=== PATIENT | male | born 1945 | race Caucasian/White ===

== ENCOUNTER → 2016-12-20 | Outpatient (CLI) | payer MEDICARE, OTHER ==
[2016-06-10 11:26] VITALS: BP 158/82
[~2016-12-20] MED LIST: ALFU10TA3 PO; ASCO100T4 PO; ASPI-482 PO; ASPI81TA2 PO; CELE200C PO; CHOL20002 PO; FERR325T58 PO; HYDR-1172 PO; Hydrocodone/Acetaminophen PO; IBUP-1027 PO; LOSA100T6 PO; MELA5TAB PO; MELO-150 PO; MULT-18 PO; OMEG1CAP30 PO; OMEG1CAP6 PO; PSEU30TA PO; SIMV10TA3 PO; UBID200C4 PO
[2016-12-20 09:24] LABS: ALBUMIN 3.6 g/dL (3.4-5.0); CREATININE 1.1 mg/dL (0.7-1.3); GFR 66.4; POTASSIUM 4.1 mmol/L (3.5-5.1)
[2016-12-20 09:30] LABS: BASO % 1 % (0-3); EOS % 6 % (0-3); HEMATOCRIT 41.4 % (39.0-53.0); LYMPH # 2.6 x10^3/uL (1.0-4.8); LYMPH % 38 % (24-48); MEAN CORPUSCULAR HEMOGLOBIN 31 pg (25-35); MEAN CORPUSCULAR HGB CONC 34 g/dL (31-37); MEAN CORPUSCULAR VOLUME 93 fL (79-100); MONO % 11 % (0-9); NEUT % 46 % (31-73); PLATELET COUNT 206 x10^3/uL (140-400); RED BLOOD COUNT 4.45 x10^6/uL (4.30-5.70); RED CELL DISTRIBUTION WIDTH 12.9 % (11.5-14.5); WHITE BLOOD COUNT 6.8 x10^3/uL (4.0-11.0)
[2016-12-20 09:37] LABS: INR 1.1 (0.8-1.1); PROTHROMBIN TIME PATIENT 13.2 SEC (11.7-14.0)
[2016-12-20 10:00] LABS: BILIRUBIN,URINE NEGATIVE (NEG); GLUCOSE,URINE NEGATIVE (NEG); NITRITE,URINE NEGATIVE (NEG); PH,URINE 6.5; PROTEIN,URINE NEGATIVE (NEG-TRACE); UROBILINOGEN,URINE 0.2 mg/dL (0.2 mg/dL)
[2016-12-20 10:13] LABS: BACTERIA,URINE 0 /HPF (0-FEW); RBC,URINE OCC /HPF (0-2); SQUAMOUS EPITHELIAL CELL,UR FEW /LPF; WBC,URINE 0 /HPF (0-4)
--- NOTE | 2016-12-20 12:46 | RAD ---
Indication: Presurgical evaluation. Hypertension. Technique: Two-view chest radiograph was obtained. No comparison is available. Findings: The lungs are clear. The cardiopulmonary silhouette is within normal limits. There is no pleural effusion. There are degenerative changes in the spine. Right shoulder replacement is noted. Impression: No acute thoracic findings.
--- NOTE | 2016-12-20 13:41 | EKG ---
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
== END | disposition home or self-care (01) ==
LOC: SURGPAT 14:34
PROVIDERS: ATTEND Orthopaedic Surgery
DX: Z01.818 Encounter for other preprocedural examination (principal); I10 Essential (primary) hypertension
CPT/HCPCS: 36415; 71020; 80048; 81001; 82040; 85027; 85610; 85651; 85730; 87641; 93005

== ENCOUNTER 2017-01-04 05:59 | Inpatient (IN) | payer MEDICARE, OTHER ==
--- NOTE | 2017-01-03 10:13 | PDOC1 ---
History and Physical Date of Admission Date of Admission DATE: 01/04/17 Identification/Chief Complaint Chief Complaint right knee osteoarthritis pain Source Source: Chart review History of Present Illness History of Present Illness Tenzin villa is a 71 year old male patient with a long history of right knee osteoarthritis pain. He had a series of Orthovisc injections finishing on . He states that it really only helped for a week or two and his knee continues to be painful daily that limits his daily activities. Past Medical History Cardiovascular: HTN, Hyperlipidemia Musculoskeletal: Osteoarthritis Past Surgical History Past Surgical History: Tonsillectomy, Other (shoulder replacement) Current Medications Current Medications Active Scripts Active Reported Fish Oil 1,000 Mg Capsule ([place]-3 Fatty Acids/Fish Oil) 1 Each Capsule 1 Each PO BID Aspirin 81 Mg Tab.chew 162 Mg PO Ibuprofen 400 Mg Tablet 400 Mg PO PRN Q6HRS PRN Melatonin 5 Mg Tablet 5 Mg PO Not given this hospitalization. May resume at home as ordered by doctor. Co Q-10 (Ubidecarenone) 200 Mg Capsule 200 Mg PO 1X Not given this hospitalization. May resume at home as ordered by doctor. Iron Supplement (Ferrous Sulfate) 325 Mg Tablet 325 Mg PO DAILY last dose 06/25/14 at 9 am next dose due 06/25/14 at 5 pm Vitamin C (Ascorbic Acid) 100 Mg Tablet 1,000 Mg PO Not given this hsopitalization. May resume at home as ordered by doctor. Vitamin D-3 (Cholecalciferol (Vitamin D3)) 2,000 Unit Tablet 2,000 Unit PO Not given this hospitalization. May resume at home as ordered by doctor. Daily Vitamin (Multivitamin) 1 Each Tablet 1 Each PO last dose 06/25/14 at 9 am next dose 06/26/14 at 9 am Pseudoephedrine Hcl 30 Mg Tablet 30 Mg PO Not given this hospitalization. May resume at home as ordered by doctor. Simvastatin 10 Mg Tablet 10 Mg PO last dose 06/24/14 at 9 pm next dose due 06/25/14 at 9 pm Losartan Potassium 100 Mg Tablet 100 Mg PO last dose 06/25/14 at 9 am next dose due 06/26/14 at 9 am Meloxicam 15 Mg Tablet 15 Mg PO NOt given this hospitalization. May resume at home as ordered by doctor. Do NOT take celebrex if taking this medication. Alfuzosin Hcl 10 Mg Tab.er.24h 10 Mg PO HS last dose 06/24/14 at 9 pm next dose due 06/25/14 at 9 pm Allergies Allergies: Coded Allergies: No Known Drug Allergies (Unverified , 06/10/16) Physical Exam General: Alert, Oriented X3, Cooperative, No acute distress HEENT: Atraumatic, EOMI Lungs: Normal air movement Heart: RRR Abdomen: Soft Extremities: No clubbing, No cyanosis, Normal pulses, Other (The right knee shows his mildly antalgic gait. There is varus alignment. No masses. No detectable effusion. Tenderness on the joint lines. Range of motion is 5-115 degrees. There is crepitus with range of motion, and pain at the extremes of motion. The knee is stable to varus and valgus stress without subluxation or laxity. Muscle strength is normal (5/5) for quadriceps and hamstrings, and muscle tone is normal. The skin is normal with no scars, rashes, lesions or ulcers. Light touch sensation is intact. No edema and no varicosities. 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 Findings Bones: The angle between the right hip-ankle mechanical axis and the femoral shaft is 5. The angle between the left hip- ankle mechanical axis and the femoral shaft is 5. The mechanical axis crosses medial to the center of the right knee indicating varus alignment. The mechanical axis crosses in the center to slightly medial of the left knee indicating proper to varus mechanical alignment. Joints: There is narrowing of the right knee joint medially. The left knee joint shows mild medial narrowing. The hips and ankles show minimal degenerative changes. Soft tissue: Normal. Impression: Varus alignment of the right knee. The difference between the mechanical axis and femoral shaft anatomic axis is 5 bilaterally. Dictated and Signed Using Voice Recognition Software NOEMI Roland VTE Prophylaxis Ordered VTE Prophylaxis Devices: Yes VTE Pharmacological Prophylaxi: Yes Assessment/Plan Assessment/Plan Right knee osteoarthritis. He has tried nonoperative treatment, including viscosupplementation. We discussed the risks and benefits of proceeding with total knee arthroplasty. He is 72 years old and would benefit regarding pain relief. Dr. Jay and the patient discussed the potential risks of infection, malalignment, blood clots, bleeding, scarring, stiffness, or other potential surgical or anesthetic complications. All of his questions about surgery were answered and he desires to proceed a mutually convenient date. LALITO LAM Jan 03, 2017 10:13
[~2017-01-04] VITALS: Ht 181.6 cm; Wt 123.4 kg
[2017-01-04] VITALS (10 sets, daily range): BP systolic 127–148; BP diastolic 73–88
[2017-01-04] MEDS ORDERED: MELOXICAM 7.5 MG TABLET PO PRN (06:00)
[2017-01-04] MEDS ORDERED: HYDROCODONE/APAP 7.5/325MG TABLET. PO PRN (06:00)
[2017-01-04] MEDS ORDERED: MORPHINE SULFATE 5 MG, KETOROLAC TROMETHAMINE 30 MG, ROPIVacaine 0.5% PF 60 ML, EPINEPH... INT ART ONE ×5 (06:00)
[2017-01-04] MEDS ORDERED: TRANEXAMIC ACID 1,000 MG in IV NS 50ML -- 1ST BAG INJ ONE (06:00)
[2017-01-04] MEDS ORDERED: CEFAZOLIN 2GM PREMIX 50 ML IV PRN (06:00)
[2017-01-04] MEDS ORDERED: methylPREDNISolone ACETATE 80 MG/ML VIAL. ONE (06:26)
[2017-01-04] MEDS ORDERED: BUPIVACAINE MPF 0.25% 30 ML VIAL. ONE (06:26)
[2017-01-04] MEDS ORDERED: VANCOMYCIN 1 GM VIAL. ONE (06:27)
[2017-01-04] MEDS ORDERED: methylPREDNISolone ACETATE 40 MG/ML VIAL. ONE (06:27)
[2017-01-04] MEDS ORDERED: TOBRAMYCIN POWDER 1.2 GM VIAL. ONE (06:27)
[2017-01-04] MEDS ORDERED: ONDANSETRON PF 4 MG/2 ML VIAL. ONE (06:48)
[2017-01-04] MEDS ORDERED: FENTANYL PF 100 MCG/2 ML VIAL. ONE ×2 (06:48→07:49)
[2017-01-04] MEDS ORDERED: LIDOCAINE 2% 100 MG/5 ML DISP.SYRIN. ONE (06:48)
[2017-01-04] MEDS ORDERED: PROPOFOL 20 ML IV ONE ×2 (06:48→07:37)
[2017-01-04] MEDS ORDERED: IV RINGERS,LACTATED 1000ML 1,000 ML IV SCH (07:00)
[2017-01-04] MEDS ORDERED: FENTANYL PF 100 MCG/2 ML VIAL. IV PRN ×3 (07:00→10:00)
[2017-01-04] MEDS ORDERED: LIDOCAINE 1% 1 ML SYRINGE. ID PRN (07:00)
[2017-01-04] MEDS ORDERED: PROCHLORPERAZINE 10 MG/2 ML VIAL. IV PRN ×2 (07:00→10:00)
[2017-01-04] MEDS ORDERED: ONDANSETRON PF 4 MG/2 ML VIAL. IV PRN (07:00)
[2017-01-04] MEDS ORDERED: HYDROMORPHONE 2 MG/ML VIAL. IV PRN (07:00)
[2017-01-04] MEDS ORDERED: DEXAMETHASONE SOD PHOS 20 MG/5 ML VIAL. ONE (07:24)
[2017-01-04] MEDS ORDERED: EPHEDRINE PF IN SALINE 50 MG/5 ML DISP.SYRIN. IV ONE ×2 (07:24→07:50)
[2017-01-04] MEDS ORDERED: GLYCOPYRROLATE 1 MG/5 ML VIAL. ONE (07:43)
[2017-01-04] MEDS ORDERED: TRANEXAMIC ACID 1,000 MG in IV NS 50ML -- 2ND BAG INJ ONE (08:00)
[2017-01-04] MEDS ORDERED: SEVOFLURANE > 120 MINUTES. IH ONE (09:19)
[2017-01-04] MEDS ORDERED: PHENYLEPHRINE in 0.9% NACL PF 1 MG/10 ML DISP.SYRIN. IV ONE (09:21)
--- NOTE | 2017-01-04 09:39 | PDOC4 ---
Operative Note Operative Note Date of Procedure: January 04, 2017 Pre-Op Diagnosis: Osteoarthritis right knee, left shoulder pain Post-Op Diagnosis: Osteoarthritis right knee, left shoulder pain Procedure: right total knee arthroplasty, left shoulder corticosteroid injection Surgeon: Gonzalez Jay MD Experimental Psychologist: Bell Mercado PA-C Anesthesia: General EBL: 100 mL Specimens Obtained: right knee bone and soft tissue Complications: none Implant Company: [employer] Drains: Hemovac plus pain catheter Tourniquet time: 68 minutes Indications for Procedure: Arthritis pain unrelieved by nonoperative management. Findings: Severe osteoarthritis with bone on bone contact medially. Extensive medial release needed as well as medial tibial osteophyte and bone resection. Constrained polyethylene used as a result of extensive release Implants used: Size 6 right bicruciate stabilized Journey II BCS cobalt chrome femoral component, size 6 right Journey nonporous tibial baseplate, size 5-6 15 mm right Journey II BCS XLPE constainded articular insert, 35 mm oval Shonna II resurfacing patellar component Procedure in Detail: The patient was identified in the preoperative holding area, and the correct right extremity was marked by me. The patient was taken to the operating room where the patient was anesthetized by the Department of Anesthesia. Preoperative antibiotics were given intravenously. Tranexamic acid 1 g was given intravenously for intraoperative hemostasis. A "time-out" procedure was performed. The left shoulder was injected with 40 mg of Depo-Medrol and 2 mL 0.5 % Marcaine. The patient was positioned supine on the operative table with a tourniquet on the upper thigh. The limb was thoroughly prepped and draped in sterile fashion. An impervious stockinet and adhesive drape were used such that the skin was entirely covered. An Cervantes leg cordova was used. The operating team wore personal exhaust-ventilated hoods. The tourniquet was inflated to 350 mm Hg. A midline skin incision was made with a scalpel using the patella and tibial tubercle as landmarks. Electrocautery was used for hemostasis. My engineering assistant used rake retractors. A medial parapatellar arthrotomy incision was used with extension into the distal quadriceps tendon. The patella was retracted laterally and Hohmann retractors were now used by my engineering assistant. Excess synovium, the menisci, and the cruciate ligaments were resected sharply. The patella was assessed and excess synovium and osteophytes around the patellar articulation were removed. The patella was measured with a caliper, cut freehand with a saw using caliper measurements, sized, and then drilled for an oval three-pegged patella component. Periarticular injection was used in the suprapatellar pouch and distal quadriceps muscle. Whitesides's line was assessed on the femur. An intra-medullary 5 degree cutting guide was pinned to the femur, and a distal femoral cut was made with an oscillating saw. An additional 2 mm resection was used due to the deep femoral sulcus, and deficient condyle.My engineering assistant held Hohmann retractors and an [facility] retractor to protect the medial and lateral collateral ligaments, the patellar tendon, the skin and the other soft tissues. An anterior referencing guide was applied with external rotation of 4 to match Whitesides line. A 5-in-1 Journey II cutting guide was then applied and pinned to the femur. The posterior, anterior, and all chamfer cuts were made with the oscillating saw. An extramedullary guide was pinned to the tibia and rotational alignment and the planned resection thickness assessed. An external alignment steph was used to verify the planned cut in the varus-valgus plane and regarding posterior slope referencing the tibial tubercle, the tibial shaft, the ankle joint, and the second metatarsal. The upper tibia was cut made with an oscillating saw. My engineering assistant held Hohmann retractors and a posterior cruciate ligament retractor to protect the medial and lateral collateral ligaments, the patellar tendon, the skin, the peroneal nerve and the other soft tissues. The upper tibia was sized with a trial baseplate. The posterior compartment was cleared of osteophytes and loose bodies, and posterior capsule released. Alecia-articular injection was used in the posterior compartment. The box cut for a posterior stabilized component was made. A preliminary reduction was performed with a trial femur, trial tibial baseplate and trial polyethylene. Soft-tissue balancing was now performed, and extension and rotation of the alignments was checked using a guide steph in the tibial trial and a guide pin in the femur. A medial release was required, using a 10 blade scalpel, and a Christopher elevator to elevate the medial structures from the upper medial tibia. Downsizing of the tibia was required using osteotome resecting medial osteophyte and bone. The stability was assessed using different thicknesses of tibial articular surface to find satisfactory stability and good range of motion. During range of motion testing, the medial collateral ligament and hamstring suddenly loosened. The rotation of the tibial component was marked on the upper tibia. Final trial reduction was now performed verifying patella tracking and tibiofemoral stability and alignment, and a constrained insert trial was used. The tibia preparation was completed with a drill, saw, and fin punch at the previously noted rotation. The final implants were verified and opened. Outer gloves were changed by the operating team. The bone cuts were washed thoroughly with the [employer] InterPulse device and dried. Two packages of Palacos bone cement were mixed in powdered form with 1 gm of Vancomycin and 1.2 g tobramycin, then vacuum-mixed with the monomer, and placed into a cement gun. The cut surfaces of the bone were thoroughly dried with Guzman-tip suction and with laparotomy sponges for cement interdigitation. The final components were cemented into place. The knee was kept at full extension while the cement hardened, and excess cement was removed. Tranexamic acid 1 g was redosed intravenously for additional intraoperative hemostasis. A final periarticular injection was used for pain relief. The tourniquet was released, and electrocautery was used for hemostasis. A final check of [id number] and stability was made, and the polyethylene implant final size was chosen. The polyethylene implant was secured to the tibial baseplate, and the knee was reduced a final time. Thorough irrigation was used. Hemovac and pain catheter were used.The arthrotomy was closed with interrupted [id number] #1 PDS suture. The capsulotomy was then run with #1 PDS. The subcutaneous tissues were closed with #2-0 Vicryl by my engineering assistant. The skin was reapproximated with michael by my engineering assistant. A bulky sterile dressing was applied. Needle and sponge counts were correct. GONZALEZ JAY MD Jan 04, 2017 09:39
[2017-01-04] MEDS: IV DEXTROSE 5 %-0.45 % NACL 1,000 ML IV SCH ×2 (09:47→12:14)
[2017-01-04] MEDS ORDERED: CALCIUM CARBONATE 500 MG TAB.CHEW PO PRN (10:00)
[2017-01-04] MEDS ORDERED: MORPHINE SULFATE 2 MG/ML DISP.SYRIN. IV PRN (10:00)
[2017-01-04] MEDS ORDERED: ACETAMINOPHEN 325 MG TABLET. PO PRN (10:00)
[2017-01-04] MEDS ORDERED: OXYCODONE/APAP 7.5/325 TABLET. PO PRN (10:00)
[2017-01-04] MEDS ORDERED: MORPHINE SULFATE 10 MG/ML VIAL. IV PRN (10:00)
[2017-01-04] MEDS ORDERED: DIPHENHYDRAMINE 50 MG/ML VIAL IV PRN (10:00)
[2017-01-04] MEDS ORDERED: DEXTROSE 50% 25 GM / 50ML DISP.SYRIN. IV PRN (10:00)
[2017-01-04] MEDS ORDERED: ZOLPIDEM 5 MG TABLET. PO PRN (10:00)
[2017-01-04] MEDS ORDERED: OXYCODONE/APAP 5/325 TABLET. PO PRN (10:00)
[2017-01-04] MEDS ORDERED: PROCHLORPERAZINE 5 MG TABLET. PO PRN (10:00)
[2017-01-04] MEDS ORDERED: 0.9 % SODIUM CHLORIDE 10 ML DISP.SYRIN. IV PRN (10:00)
[2017-01-04] MEDS ORDERED: MORPHINE SULFATE 4 MG/ML DISP.SYRIN. IV PRN ×2 (10:00)
[2017-01-04] MEDS ORDERED: HYDROCODONE/APAP 10/325 TABLET. PO PRN (10:00)
[2017-01-04] MEDS ORDERED: METOCLOPRAMIDE HCL 10 MG/2 ML VIAL. IV PRN (10:00)
[2017-01-04] MEDS ORDERED: TRAMADOL 50 MG TABLET. PO PRN ×2 (10:00)
[2017-01-04] MEDS: FENTANYL PF 100 MCG/2 ML VIAL. IV PRN ×2 (10:08→10:17)
[2017-01-04] MEDS: MORPHINE SULFATE 2 MG/ML DISP.SYRIN. IV PRN ×2 (10:31→10:43)
--- NOTE | 2017-01-04 10:48 | RAD ---
EXAM: Right knee, 2 views. HISTORY: Arthroplasty. COMPARISON: None. FINDINGS: Frontal and lateral views of the right knee are obtained. There is a right knee arthroplasty in expected position. There is surrounding soft tissue gas, a surgical drain, joint fluid and skin michael due to recent surgery. IMPRESSION: Right knee arthroplasty in expected position.
[2017-01-04] MEDS: MULTIVITAMIN with MINERAL TABLET. PO SCH (11:30)
[2017-01-04] MEDS: CEFAZOLIN SODIUM 3 GM in IV NORMAL SALINE 100ML 100 ML IV SCH ×2 (14:12→17:24)
[2017-01-04] MEDS: SENNOSIDES/DOCUSATE 8.6/50MG TABLET. PO SCH (17:17)
[2017-01-04] MEDS: FERROUS SULFATE 325 MG TABLET PO SCH (17:17)
[2017-01-04] MEDS: KETOROLAC TROMETHAMINE 30 MG, BUPIVACAINE MPF 0.25% 20 ML, EPINEPHRINE 0.5 MG in TOTAL ... INT ART SCH (17:20)
[2017-01-04] MEDS: HYDROCODONE/APAP 7.5/325MG TABLET. PO PRN (20:50)
[2017-01-04] MEDS: ASPIRIN ENTERIC COATED 325 MG TABLET.DR. PO SCH (20:51)
[2017-01-04] MEDS: CELECOXIB 200 MG CAPSULE PO SCH (20:51)
[2017-01-04] MEDS: TAMSULOSIN 0.4 MG CAP.ER.24H. PO SCH (20:51)
[2017-01-05] MEDS: CEFAZOLIN SODIUM 3 GM in IV NORMAL SALINE 100ML 100 ML IV SCH (01:00)
[2017-01-05 02:53] VITALS: BP 127/87
[2017-01-05] MEDS: IV DEXTROSE 5 %-0.45 % NACL 1,000 ML IV SCH ×2 (05:47→15:47)
[2017-01-05] MEDS ORDERED: MAGNESIUM HYDROXIDE 2,400 MG/30 ML ORAL.SUSP. PO PRN (06:00)
[2017-01-05 06:11] VITALS: BP 128/74
[2017-01-05] MEDS: KETOROLAC TROMETHAMINE 30 MG, BUPIVACAINE MPF 0.25% 20 ML, EPINEPHRINE 0.5 MG in TOTAL ... INT ART SCH (06:11)
[2017-01-05 06:53] LABS: HEMATOCRIT 32.9 % (39.0-53.0); HEMOGLOBIN 10.9 g/dL (13.0-17.5); RED BLOOD COUNT 3.43 x10^6/uL (4.30-5.70); RED CELL DISTRIBUTION WIDTH 13.3 % (11.5-14.5); WHITE BLOOD COUNT 11.2 x10^3/uL (4.0-11.0)
[2017-01-05] MEDS: SENNOSIDES/DOCUSATE 8.6/50MG TABLET. PO PRN ×2 (08:42→20:47)
[2017-01-05] MEDS: CHOLECALCIFEROL (VITAMIN D3) 1,000 UNIT TABLET PO SCH (08:43)
[2017-01-05] MEDS: FERROUS SULFATE 325 MG TABLET PO SCH ×2 (08:43→16:56)
[2017-01-05] MEDS: CELECOXIB 200 MG CAPSULE PO SCH (08:43)
[2017-01-05] MEDS: MULTIVITAMIN with MINERAL TABLET. PO SCH (08:43)
[2017-01-05] MEDS: ASPIRIN ENTERIC COATED 325 MG TABLET.DR. PO SCH ×2 (08:43→20:47)
[2017-01-05] MEDS: HYDROCODONE/APAP 7.5/325MG TABLET. PO PRN ×4 (08:44→20:47)
[2017-01-05] MEDS: LOSARTAN POTASSIUM 50 MG TABLET. PO SCH (08:45)
[2017-01-05] MEDS: SIMVASTATIN 10 MG TABLET PO SCH ×2 (09:00→16:56)
[2017-01-05 11:15] VITALS: BP 132/73
--- NOTE | 2017-01-05 12:38 | PDOC ---
PROGRESS NOTES Subjective Subjective No complaints. Doing very well. He says his left shoulder is feeling much better after the intraoperative cortisone injection. Objective Vital Signs Vital Signs Date Time Temp Pulse Resp B/P Pulse Ox O2 Delivery O2 Flow Rate FiO2 01/05/17 12:19 16 01/05/17 11:15 98.1 70 132/73 98 Room Air 98.1 01/04/17 14:00 2.0 Physical Exam Dressing dry and intact. Pain catheter and Hemovac in place. Good dorsiflexion and plantarflexion of the foot with no evidence of neurovascular injury or DVT. Calves are soft and nontender with a negative Homans. Peripheral pulses and light touch sensation intact. Labs Laboratory Tests Test 01/05/17 06:40 White Blood Count 11.2x10^3/uL (4.0-11.0) Red Blood Count 3.43x10^6/uL (4.30-5.70) Hemoglobin 10.9g/dL (13.0-17.5) Hematocrit 32.9% (39.0-53.0) Mean Corpuscular Volume 96fL (79-100) Mean Corpuscular Hemoglobin 32pg (25-35) Mean Corpuscular Hemoglobin Concent 33g/dL (31-37) Red Cell Distribution Width 13.3% (11.5-14.5) Platelet Count 173x10^3/uL (140-400) Laboratory Tests Test 01/05/17 06:40 White Blood Count 11.2x10^3/uL (4.0-11.0) Red Blood Count 3.43x10^6/uL (4.30-5.70) Hemoglobin 10.9g/dL (13.0-17.5) Hematocrit 32.9% (39.0-53.0) Mean Corpuscular Volume 96fL (79-100) Mean Corpuscular Hemoglobin 32pg (25-35) Mean Corpuscular Hemoglobin Concent 33g/dL (31-37) Red Cell Distribution Width 13.3% (11.5-14.5) Platelet Count 173x10^3/uL (140-400) Imaging Postoperative x-rays reviewed by me, showing satisfactory total knee replacement , with no apparent complications. Assessment Assessment POD #1 right TKA and left shoulder cortisone injection Problems: Plan Plan of Care Continue POC including DVT prophylaxis and physical therapy. He would like to go home tomorrow after therapy, which is fine as long as he is doing well. LALITO LAM Jan 05, 2017 12:38
[2017-01-05] MEDS ORDERED: BISACODYL 10 MG SUPP.RECT. PR PRN (16:00)
[2017-01-05 18:20] VITALS: BP 154/81
[2017-01-05] MEDS: TAMSULOSIN 0.4 MG CAP.ER.24H. PO SCH (20:47)
[2017-01-06] MEDS: IV DEXTROSE 5 %-0.45 % NACL 1,000 ML IV SCH (01:47)
[2017-01-06 05:11] LABS: HEMATOCRIT 31.2 % (39.0-53.0); HEMOGLOBIN 10.5 g/dL (13.0-17.5)
[2017-01-06] MEDS ORDERED: ACETAMINOPHEN 325 MG TABLET. PO PRN (05:32)
[2017-01-06] MEDS ORDERED: FENTANYL PF 100 MCG/2 ML VIAL. IV PRN ×2 (05:32)
[2017-01-06] MEDS: HYDROCODONE/APAP 7.5/325MG TABLET. PO PRN ×3 (06:19→12:38)
[2017-01-06 06:22] VITALS: BP 145/76
[2017-01-06] MEDS: FERROUS SULFATE 325 MG TABLET PO SCH (08:22)
[2017-01-06] MEDS: CHOLECALCIFEROL (VITAMIN D3) 1,000 UNIT TABLET PO SCH (08:23)
[2017-01-06] MEDS: SENNOSIDES/DOCUSATE 8.6/50MG TABLET. PO SCH (08:23)
[2017-01-06] MEDS: ASPIRIN ENTERIC COATED 325 MG TABLET.DR. PO SCH (08:23)
[2017-01-06] MEDS: MULTIVITAMIN with MINERAL TABLET. PO SCH (08:23)
[2017-01-06] MEDS: LOSARTAN POTASSIUM 50 MG TABLET. PO SCH (08:32)
[2017-01-06] MEDS ORDERED: MELOXICAM 7.5 MG TABLET PO SCH (09:00)
--- NOTE | 2017-01-06 12:09 | PDOC ---
PROGRESS NOTES Subjective Subjective Doing well. Objective Vital Signs Vital Signs Date Time Temp Pulse Resp B/P Pulse Ox O2 Delivery O2 Flow Rate FiO2 01/06/17 09:07 Room Air 01/06/17 08:32 89 158/58 01/06/17 06:22 97.6 20 94 97.6 01/05/17 19:44 2.0 Physical Exam Expected swelling. Pain catheter and drain have been removed. Dressing with spotty drainage only. Calf soft and nontender. Negative homans sign. Good AROM ankle. Peripheral pulses and light touch sensation intact. Labs Laboratory Tests Test 01/05/17 06:40 01/06/17 04:45 White Blood Count 11.2x10^3/uL (4.0-11.0) Red Blood Count 3.43x10^6/uL (4.30-5.70) Hemoglobin 10.9g/dL (13.0-17.5) 10.5g/dL (13.0-17.5) Hematocrit 32.9% (39.0-53.0) 31.2% (39.0-53.0) Mean Corpuscular Volume 96fL (79-100) Mean Corpuscular Hemoglobin 32pg (25-35) Mean Corpuscular Hemoglobin Concent 33g/dL (31-37) 34g/dL (31-37) Red Cell Distribution Width 13.3% (11.5-14.5) Platelet Count 173x10^3/uL (140-400) Laboratory Tests Test 01/06/17 04:45 Hemoglobin 10.5g/dL (13.0-17.5) Hematocrit 31.2% (39.0-53.0) Mean Corpuscular Hemoglobin Concent 34g/dL (31-37) Imaging X-rays independently reviewed by me and show satisfactory TKA alignment and no apparent complications. Assessment Assessment POD 2 TKA Problems: Plan Plan of Care Continue DVT prophylaxis and physical therapy. Planned discharge today to home , with outpatient PT. Office F/U in 10-14 days. GONZALEZ CHAUHAN MD Jan 06, 2017 12:09
--- NOTE | 2017-01-06 12:12 | PDOC3 ---
Discharge Summary Visit Information Date of Admission: Jan 04, 2017 Date of Discharge: Jan 06, 2017 Admitting Diagnosis: right knee osteoarthritis pain Final Diagnosis Problems Medical Problems: (1) Osteoarthritis of right knee Status: Acute Brief Hospital Course Allergies Allergies Coded Allergies Type Severity Reaction Last Updated Verified No Known Drug Allergies 01/04/17 No Vital Signs Vital Signs Date Time Temp Pulse Resp B/P Pulse Ox O2 Delivery O2 Flow Rate FiO2 01/06/17 09:07 Room Air 01/06/17 08:32 89 158/58 01/06/17 06:22 97.6 20 94 97.6 01/05/17 19:44 2.0 Lab Results Laboratory Tests Test 01/05/17 06:40 01/06/17 04:45 White Blood Count 11.2x10^3/uL (4.0-11.0) Red Blood Count 3.43x10^6/uL (4.30-5.70) Hemoglobin 10.9g/dL (13.0-17.5) 10.5g/dL (13.0-17.5) Hematocrit 32.9% (39.0-53.0) 31.2% (39.0-53.0) Mean Corpuscular Volume 96fL (79-100) Mean Corpuscular Hemoglobin 32pg (25-35) Mean Corpuscular Hemoglobin Concent 33g/dL (31-37) 34g/dL (31-37) Red Cell Distribution Width 13.3% (11.5-14.5) Platelet Count 173x10^3/uL (140-400) Laboratory Tests Test 01/06/17 04:45 Hemoglobin 10.5g/dL (13.0-17.5) Hematocrit 31.2% (39.0-53.0) Mean Corpuscular Hemoglobin Concent 34g/dL (31-37) Brief Hospital Course 71 year old male who presented with right knee osteoarthritis, for elective total knee arthroplasty. The patient underwent total knee arthroplasty under general anesthesia the day of admission. Perioperative antibiotics and DVT prophylaxis were used. Postoperatively physical therapy and case management were consulted. The patient progressed and is stable for discharge. Discharge Information Condition at Discharge: Stable Follow Up: Weeks (2) Disposition/Orders: D/C to Home Scheduled Alfuzosin Hcl (Alfuzosin Hcl) 10 MG PO HS (Reported) Ferrous Sulfate (Iron Supplement) 325 MG PO DAILY (Reported) [place]-3 Fatty Acids/Fish Oil (Fish Oil 1,000 Mg Capsule) 1 EACH PO BID (Reported ) Ubidecarenone (Co Q-10) 200 MG PO 1X (Reported) Scheduled PRN Ibuprofen (Ibuprofen) 400 MG PO PRN Q6HRS PRN PRN INFLAMMATION (Reported) Miscellaneous Medications Ascorbic Acid (Vitamin C) 1,000 MG PO (Reported) Aspirin (Aspirin) 162 MG PO (Reported) Cholecalciferol (Vitamin D3) (Vitamin D-3) 2,000 UNIT PO (Reported) Losartan Potassium (Losartan Potassium) 100 MG PO (Reported) Melatonin (Melatonin) 5 MG PO (Reported) Meloxicam (Meloxicam) 15 MG PO (Reported) Multivitamin (Daily Vitamin) 1 EACH PO (Reported) Pseudoephedrine Hcl (Pseudoephedrine Hcl) 30 MG PO (Reported) Simvastatin (Simvastatin) 10 MG PO (Reported) Patient Instructions Patient Instructions Patient Instructions Continue to WBAT with walker. Keep dressing dry and intact. F/U with [facility] in 10-14 days. Call for appointment. [phone] Physical therapy for TKA Continue DVT prophylaxis with aspirin 325mg twice daily. LALITO LAM Jan 06, 2017 12:12
--- NOTE | 2017-01-06 12:54 | PATHOLOGY ---
PATHOLOGY REPORT * * * * * * * * FINAL DIAGNOSIS: Bone, right knee, removal: - Degenerative osteoarthritis. (SKM:nani; d/t: 01/06/2017) REPORT ELECTRONICALLY SIGNED BY: Parker Grissom M.D. DATE/TIME: 01/06/2017 12:52 * * * * * * * * GROSS PATHOLOGY: Received in formalin labeled "Sky Padilla II, right knee tissue," are multiple segments of bone, including tibial plateau, measuring 13.8 x 10.2 x 2.9 cm in aggregate dimensions admixed with soft tissue; meniscus is present. The specimen shows focal eburnation of the articular surfaces. Order Booker sections of bone and soft tissue are submitted in cassette A1, following decalcification. (CAA; 01/05/2017) INITIAL CPT CODE(S): A; 10380, 79311 Professional services performed [place] [facility] [place] [address] Technical services performed by [facility] at [address] [place] [address], [facility] [address] [place] [address]. SPECIMEN(S) RECEIVED: A.Right knee tissue CLINICAL HISTORY: Right knee OA PATIENT: SKY PADILLA II /AGE: 11 1945 (Age: 71) PATIENT #: [id number] ALT CASE #: SPECIMEN COLLECTION DATE: 01/04/2017 SPECIMEN RECEIVED DATE: 01/04/2017 [facility] - [address] [place] [address] - PHONE: [phone] * * * END OF REPORT * * *
[2017-01-06] MEDS ORDERED: FERR-26 PO ×2 (13:50→13:51)
[2017-01-06] MEDS ORDERED: ASPI325T11 PO (13:51)
[2017-01-06] MEDS ORDERED: MAGNESIUM HYDROXIDE 2,400 MG/30 ML ORAL.SUSP. PO ONE (14:15)
[2017-01-06 14:47] VITALS: BP 136/76
== END 2017-01-06 15:15 | disposition home or self-care (01) | DRG 470 ==
LOC: OPSVCIP 05:59 → 4 SOUTHEST 11:05
PROVIDERS: ADMIT Orthopaedic Surgery; ATTEND Orthopaedic Surgery
PROC: 3E0U33Z Introduction of Anti-inflammatory into Joints, Percutaneous Approach (ICD-10-PCS; 2017-01-04)
PROC: 0SRC0J9 Replacement of Right Knee Joint with Synthetic Substitute, Cemented, Open Approach (ICD-10-PCS; principal; 2017-01-04 07:10)
DX: M17.11 Unilateral primary osteoarthritis, right knee (principal); Z96.619 Presence of unspecified artificial shoulder joint; I10 Essential (primary) hypertension; E78.5 Hyperlipidemia, unspecified; M25.70 Osteophyte, unspecified joint; Z79.899 Other long term (current) drug therapy
CPT/HCPCS: 36415; 73560; 85014; 85018; 85027; 86850; 86900; 86901; J0171; J0690; J1030; J1040; J1100; J1885; J2270; J2370; J2405; J2704; J2795; J3010; J3260; J3370; J3490; J7030; J7120; 97116; 97150; 97530; C1769

== ENCOUNTER 2018-03-16 10:31 | Emergency (ER) | payer MEDICARE, OTHER ==
[2018-03-16 11:05] LABS: BILIRUBIN,URINE NEGATIVE (NEG); CLARITY,URINE CLEAR; COLOR,URINE YELLOW; GLUCOSE,URINE NEGATIVE (NEG); NITRITE,URINE NEGATIVE (NEG); PH,URINE 5.5; PROTEIN,URINE NEGATIVE (NEG-TRACE); UROBILINOGEN,URINE 0.2 mg/dL (0.2 mg/dL)
[2018-03-16 11:11] LABS: BACTERIA,URINE 0 /HPF (0-FEW); RBC,URINE 0 /HPF (0-2); SQUAMOUS EPITHELIAL CELL,UR FEW /LPF; WBC,URINE OCC /HPF (0-4)
[2018-03-16 11:22] LABS: ADD MAN DIFF? NO
[2018-03-16 11:33] LABS: BASO % 1 % (0-3); EOS # 0.2 x10^3/uL (0.0-0.7); EOS % 3 % (0-3); HEMATOCRIT 31.7 % (39.0-53.0); LYMPH # 1.3 x10^3/uL (1.0-4.8); LYMPH % 22 % (24-48); MEAN CORPUSCULAR HEMOGLOBIN 33 pg (25-35); MEAN CORPUSCULAR HGB CONC 35 g/dL (31-37); MEAN CORPUSCULAR VOLUME 96 fL (79-100); MONO # 0.7 x10^3/uL (0.0-1.1); MONO % 11 % (0-9); NEUT # 3.7 x10^3uL (1.8-7.7); NEUT % 63 % (31-73); PLATELET COUNT 273 x10^3/uL (140-400); RED CELL DISTRIBUTION WIDTH 12.8 % (11.5-14.5); WHITE BLOOD COUNT 5.8 x10^3/uL (4.0-11.0)
[2018-03-16 11:38] LABS: ANION GAP 11 (6-14); BLOOD UREA NITROGEN 13 mg/dL (8-26); CALCIUM 9.1 mg/dL (8.5-10.1); CARBON DIOXIDE 26 mmol/L (21-32); CHLORIDE 106 mmol/L (98-107); CREATININE 1.2 mg/dL (0.7-1.3); GFR 59.9; GLUCOSE 102 mg/dL (70-99); POTASSIUM 3.8 mmol/L (3.5-5.1); SODIUM 143 mmol/L (136-145)
[2018-03-16 11:49] LABS: ALBUMIN 3.3 g/dL (3.4-5.0); ALK PHOS 85 U/L (46-116); ALT (SGPT) 18 U/L (16-63); AST (SGOT) 18 U/L (15-37); DIRECT BILIRUBIN 0.1 mg/dL (0.0-0.2); LIPASE 153 U/L (73-393); TOTAL BILIRUBIN 0.5 mg/dL (0.2-1.0); TOTAL PROTEIN 7.3 g/dL (6.4-8.2)
[2018-03-16] MEDS: IOHEXOL 300 MG/ML 100ML VIAL. IV (11:59)
== END 2018-03-16 14:30 | disposition home or self-care (01) ==
LOC: ER 10:31
DX: K59.00 Constipation, unspecified (principal); N20.0 Calculus of kidney
CPT/HCPCS: 36415; 51702; 74177; 80048; 80076; 81001; 83690; 85025; 99285-25; Q9967

== ENCOUNTER 2018-03-20 01:21 | Emergency (ER) | payer MEDICARE, OTHER | END 2018-03-20 02:42 | disposition home or self-care (01) | LOC: ER 01:21 | DX: T83.84XA Pain due to genitourinary prosthetic devices, implants and grafts, initial encounter (principal); Y82.8 Other medical devices associated with adverse incidents; E78.00 Pure hypercholesterolemia, unspecified; I10 Essential (primary) hypertension; Y92.89 Other specified places as the place of occurrence of the external cause | CPT/HCPCS: 51702; 99284-25 ==

== ENCOUNTER → 2018-11-13 | Outpatient (CLI) | payer MEDICARE, OTHER ==
[2018-03-20 02:38] VITALS: BP 160/86
[~2018-11-13] MED LIST changes: +ASPI-630 PO; +ASPI325T11 PO; -ASPI81TA2 PO; -CHOL20002 PO; +CHOL200059 PO; +FERR325T14 PO; -HYDR-1172 PO; +HYDROCODONE-IB1 EACH PO; +LEVO500T59 PO; +LOSA100T14 PO; -LOSA100T6 PO; -MELO-150 PO; +MELO15TA23 PO; +METR-34 PO; -PSEU30TA PO; +PSEU30TA27 PO; -UBID200C4 PO; +UBID200C7 PO
--- NOTE | 2018-11-13 16:18 | KCIC ---
Ultrasound of the scrotum HISTORY: Testicle swelling. COMPARISON: None RIGHT: Right testicle * Size: 3.2 cm length. * Blood supply: Intact blood flow. * Appearance: No focal mass is identified. Small echogenic reflectors or calcifications. Right epididymis: Unremarkable Miscellaneous findings: Very small hydrocele LEFT: Left testicle * Size: 4.7 cm length. * Blood supply: Intact blood flow. * Appearance: No focal mass is identified. Small echogenic reflectors or calcifications. Left epididymis: Mildly enlarged, and hypervascular. Miscellaneous findings: Small hydrocele with internal septations. There also appears to be some swelling or thickening of the left scrotal wall. IMPRESSION: 1. Left epididymis mildly enlarged and hypervascular, most likely due to epididymitis. 2. Enlargement of the left testicle relative to the right, possible left orchitis. 3. Left scrotal wall thickening or swelling. 4. Complex left hydrocele. Electronically signed by: Xu Pride MD (11/13/2018 4:14 PM) [id number]
== END | disposition home or self-care (01) ==
LOC: KCIC US 14:48
PROVIDERS: ATTEND Family Medicine
DX: N50.89 Other specified disorders of the male genital organs (principal); N43.2 Other hydrocele
CPT/HCPCS: 76870